=== PATIENT | male | born 1975 | race African-American/Black ===

== ENCOUNTER 2019-02-23 11:34 | Emergency (ER) | payer OTHER ==
[~2019-02-23] VITALS: Ht 162.6 cm; Wt 81.6 kg
[2019-02-23] MEDS ORDERED: FOLIC ACID20 MG (12:10)
[2019-02-23] MEDS ORDERED: KETO10TA2 PO (17:21)
[2019-02-23] MEDS ORDERED: LEVAQUIN500 MG PO (17:21)
== END 2019-02-23 17:26 | disposition home or self-care (01) ==
LOC: ER 11:34
DX: N50.89 Other specified disorders of the male genital organs (principal); N50.812 Left testicular pain; N50.811 Right testicular pain

== ENCOUNTER 2019-03-17 06:17 | Day surgery (SDC) | payer OTHER ==
[~2019-03-17 06:17] MED LIST: FOLIC ACID20 MG; KETO10TA2 PO; LEVAQUIN500 MG PO
== END 2019-03-17 18:15 | disposition home or self-care (01) ==
LOC: CIR.AMB 06:17 → ADM 08:15 → CIR.AMB 08:15
DX: N47.1 Phimosis (principal)